=== PATIENT | female | born 1935 | race Caucasian/White ===

== ENCOUNTER 2022-02-17 19:04 | Emergency (ER) | payer MEDICARE, BC ==
[2022-02-17] MEDS ORDERED: Sodium Chloride 0.9% 10 ML Syringe FLUSH PRN (19:16)
[2022-02-17 19:18] VITALS: BP 160/67; PULSE 86
[2022-02-17 20:11] LABS: CORONAVIRUS COVID-19 NAA POSITIVE (NEGATIVE)
[2022-02-17] MEDS ORDERED: methylPREDNISolone Sodium Succinate 125 MG/2 ML SDV IVPUSH PRN (20:23)
[2022-02-17] MEDS ORDERED: EPINEPHrine 1 MG/ML SDV IM PRN (20:23)
[2022-02-17] MEDS ORDERED: Famotidine 20 MG/2 ML SDV IVPUSH PRN (20:23)
[2022-02-17] MEDS ORDERED: diphenhydrAMINE 50 MG/ML SDV IVPUSH PRN (20:23)
[2022-02-17] MEDS ORDERED: Sodium Chloride 0.9% 10 ML Syringe FLUSH SCH (20:30)
== END 2022-02-17 21:00 | disposition home or self-care (01) ==
LOC: JD.ED 19:04
DX: U07.1 COVID-19 (principal); Z88.5 Allergy status to narcotic agent; Z88.8 Allergy status to other drugs, medicaments and biological substances; Z79.82 Long term (current) use of aspirin; Z79.02 Long term (current) use of antithrombotics/antiplatelets; Z79.899 Other long term (current) drug therapy
CPT/HCPCS: 0240U; 36415; 71045; 80053; 83735; 85025; 86140; 99283; J3490; M0222; Q0222

== ENCOUNTER 2022-08-30 06:45 | Emergency (ER) | payer MEDICARE, BC ==
[2022-08-30] MEDS ORDERED: traMADol 50 MG Tab PO ONE (09:31)
[2022-08-30 10:36] VITALS: BP 139/62; PULSE 87
== END 2022-08-30 10:02 | disposition home or self-care (01) ==
LOC: JD.ED 06:45
DX: S52.571A Other intraarticular fracture of lower end of right radius, initial encounter for closed fracture (principal); I10 Essential (primary) hypertension; Z88.5 Allergy status to narcotic agent; Z79.82 Long term (current) use of aspirin; Z79.02 Long term (current) use of antithrombotics/antiplatelets; Z79.899 Other long term (current) drug therapy; W01.0XXA Fall on same level from slipping, tripping and stumbling without subsequent striking against object, initial encounter; Y92.000 Kitchen of unspecified non-institutional (private) residence as the place of occurrence of the external cause
CPT/HCPCS: 29125; 73090; 73110; 99283; A9270